=== PATIENT | male | born 1950 | race Caucasian/White ===

== ENCOUNTER 2016-12-04 13:04 | Inpatient (IN) | payer MEDICARE ==
--- NOTE | ~2016-12-04 | HP ---
History And Physical [place] [id number] [facility] [place]. 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 Murphy Abreu, radiation oncologist is Dr. Boston Mcgowan, medical oncologist Dr. David Soto, and pulmonary DrDominic Corbett. CHIEF COMPLAINT: Shortness of breath and weakness. HISTORY OF PRESENT ILLNESS: This patient's history of present illness is obtained by talking with the patient. There are multiple family members in the room. I spoke with the ER physician, Dr. Valencia. I read the paper chart in the ER and I looked at [employer]. The patient has a long history of severe diastolic dysfunction and volume issues. He also had previous hypertrophic obstructive cardiomyopathy for which he had a surgical septal myotomy in 2012. He has now had three weeks of progressive dyspnea on exertion to where he can hardly walk a few steps. He also has dyspnea at rest. He has dramatically worsening edema on top of his baseline over the last few weeks also. Yesterday, he states he was in his house, he fell in the bathroom, did not pass out, Just had weak legs. He was on the floor, finally crawled to where the phone was and got help. Came to the emergency room because of this problem and was found to be in congestive heart failure and with acute kidney injury. The ER staff gave him Solu-Medrol and Lasix and put a Cabrera in. REVIEW OF SYSTEMS: On review of systems, he states he has a dry throat, rare dry cough, some nocturia 5 to 6 times per night which is chronic. He states he has had no recent change to his medicines. He states he had a yearly flu vaccination and he is up-to-date on his pneumonia vaccine as far as he is aware. He denies fever, chest pain, abdominal pain, nausea, vomiting, diarrhea, rectal bleeding, melena, dysuria, urinary hesitancy, rash, or tick bite. ALLERGIES: NO KNOWN DRUG ALLERGIES. PAST MEDICAL HISTORY: He denies any history of diabetes, stroke, seizure, peptic ulcer, liver disease, thyroid disease. He has known oxygen-dependent chronic obstructive pulmonary disease. He has the history of aortic stenosis and he was treated with tissue aortic valve replacement on 08/28/2013. At that same time, they did a left maze for chronic atrial fibrillation, but he reportedly still has atrial fibrillation. He also had a septal myectomy for hypertrophic obstructive cardiomyopathy and supposedly has a ventricular septal defect thereafter based on the notes I read from Dr. Abreu in [facility]. He was diagnosed last month with squamous cell cancer of the lung and is about to start radiation. He has had hypertension. He has had a pacemaker put in for complete heart block. He has stage 3 chronic kidney disease. He has anemia of chronic disease. He has obstructive sleep apnea but does not wear his CPAP faithfully at all. He has had some thrombocytopenia intermittently. He has had gastroesophageal reflux. He has obesity. History And Physical [address] [address] NAME: JANICE ROSALES : 48 STATUS : ADM IN [facility]#: [id number] AGE: 66 ADM/REG DATE : 12/04/16 MR#: [id number] REPORT SERV DATE: 12/04/16 DICTATED BY: AUGIE PATTON DATE: 12/04/16 REPORT STATUS : Draft TRANSCRIBED BY: EDGARDO DATE: 12/04/16 HOME MEDICATIONS: DuoNeb inhaled 4 times a day, ProAir HFA p.r.n., Lipitor 20 mg at bedtime, Symbicort 160/4.5 two puffs twice a day, Coreg 12.5 mg b.i.d., Celexa 20 mg at bedtime, magnesium oxide 400 mg daily, Zaroxolyn 2.5 mg daily p.r.n. weight gain of more than 3 pounds in 5 days, KCl 40 mEq twice a day, spironolactone 25 mg daily, Spiriva 2 puffs daily, Demadex 100 mg every morning, Jantoven 2 mg at bedtime. SURGICAL HISTORY: Had septal myectomy, tissue aortic valve replacement, a left-sided maze procedure. He has had cholecystectomy, pacemaker, and he had a very large tubulovillous adenoma removed with a hemicolectomy in 2013. SOCIAL HISTORY: He quit smoking about 5 years ago. He had smoked 2 to3 packs per day. His alcohol intake was moderate to heavy up until about four years ago. He states he just drinks occasional beer now. He lives alone. He walks using a cane sometimes. He is a retired heavy truck driver. FAMILY HISTORY: Mother had chronic kidney disease. Dad with COPD. DIAGNOSTIC DATA: Chest x-ray as a single portable film today reveals evidence of previous sternotomy. He has a dual lead pacer in his left chest. He has significant cardiomegaly with interstitial pulmonary edema per my interpretation. EKG done today at 1413 hours reveals a ventricular paced rhythm to my assessment. Arterial blood gas done today on 32% oxygen, pH of 7.44, pCO2 of 42, PO2 81.6, bicarbonate is 28. Sodium is 140, potassium is 3.9, chloride 94, CO2 is 36, BUN is 43, creatinine 2.24, and by comparison, his creatinine was 1.74 on 11/06/2016 which is a month ago, glucose is 118, albumin 3.3. The rest of the CMP is only remarkable for an alkaline phosphatase of 141. His troponin is 0.04. His B- natriuretic peptide is 2468.4. White count is 6.6, hemoglobin 13.7, platelets are 127,000. His pro-time is 32.2, INR 3.2, and PTT is 41.8. PHYSICAL EXAMINATION: VITAL SIGNS: Temperature 98, pulse 75, respirations 18, blood pressure is 120/60, O2 saturation is currently 97% on 2 L. GENERAL: Well-developed male, who appears older than his stated age and appears chronically ill and in moderate respiratory discomfort. HEENT: Head is atraumatic. Pupils are equal, round, and reactive to light. Extraocular motions are intact. No scleral icterus noted. Ear canals and TMs noted with wax bilaterally. Hearing no inflammatory changes of the ears externally. Nose, noninflamed externally. Septum in midline. Nares patent. Mouth, moist. Good gag. He has a large tongue. No redness of the throat or gums or lips. NECK: Obese but supple. No lymph node or thyroid enlargement. The carotids have good pulses. No bruits. LUNGS: Distant breath sounds especially in the bases with prolonged expiratory phase, mildly increased respiratory effort. HEART: Regular rate and rhythm without murmur, gallop, click, or rub. ABDOMEN: Obese, bowel sounds positive. Soft, nondistended, nontender. No masses. No organomegaly. EXTREMITIES: The patient has a tight edema of his feet and calves. He has 3+ edema of his thighs. He has pitting edema of his abdominal wall. He has pitting edema up to History And Physical [address] [address] NAME: JANICE ROSALES : 49 STATUS : ADM IN [facility]#: [id number] AGE: 66 ADM/REG DATE : 12/04/16 MR#: [id number] REPORT SERV DATE: 12/04/16 DICTATED BY: AUGIE PATTON DATE: 12/04/16 REPORT STATUS : Draft TRANSCRIBED BY: EDGARDO DATE: 12/04/16 approximately his mid thoracic area in the back. He has good pulses. No clubbing. No cyanosis. No inflamed skin or joints. NEUROLOGIC: He is alert, oriented, and cooperative with grossly normal mentation and speech. His motor strength is about 2/5 in his legs bilaterally. Hand service planner is about 3/5. No Babinski. No clonus noted. Cranial nerves 2 through 12 grossly normal. ASSESSMENT: 1. Recurrent acute diastolic congestive heart failure with volume overload. 2. Acute kidney injury superimposed on stage 3 chronic kidney disease. 3. Acute on chronic hypoxic respiratory failure. 4. Severe oxygen-dependent chronic obstructive pulmonary disease. 5. Thrombocytopenia, that is a bit worsened, has been for a while, but is not completely new as he had it back in 2012. 6. See past medical history. PLAN: The patient is admitted to a telemetry unit. We will get a series of cardiac enzymes using the congestive heart failure order set. We will initiate diuresis. We will get echocardiogram, check his CPK since he laid on the floor for 3 hours yesterday. We have PT assess his ability to ambulate. Family is updated at the bedside at this time. The patient's radiation therapy for his lung will be on hold temporarily. DONIS/EDGARDO Augie Patton M.D. / [id number] CC: Lamar Fraire MD Bertrand Marquess Anz III, M.D. Daniel Smith, M.D. Allen E Atchley, M.D. John A Fortney, M.D.
--- NOTE | ~2016-12-04 | DS ---
Discharge Summary [facility] [address] [place]. [address] NAME: JANICE ROSALES : 48 STATUS : DIS IN PAT#: [id number] AGE: 66 ADM/REG DATE : 12/04/16 MR#: [id number] REPORT SERV DATE: 12/14/16 DICTATED BY: JUDE CASTRO DATE: 12/14/16 REPORT STATUS : Draft TRANSCRIBED BY: MODL DATE: 12/14/16 ADMISSION DATE: 12/04/2016 DISCHARGE DATE: 12/13/2016 DISPOSITION: Discharged to home with home hospice. DISCHARGE DIAGNOSES: 1. Acute on chronic diastolic heart failure with volume overload, somewhat resolved. 2. Metabolic encephalopathy related to worsening metabolic alkalosis. This has partially resolved. 3. Acute on chronic hypercapnic hypoxic respiratory failure. This has partially resolved. 4. Stage IV chronic kidney disease. The patient has refused any further intervention on this and definitely does not want hemodialysis. 5. Chronic obstructive pulmonary disease for which the patient is chronically oxygen dependent. This is stable. 6. Chronic atrial fibrillation for which the patient is on anticoagulation and currently continues to take Coumadin and is therapeutic. 7. Hypertrophic obstructive cardiomyopathy treated with surgical myomectomy in 2012 and secondary ventricular septal defect. 8. Previous tissue aortic valve replacement in 2012. 9. Recently diagnosed left upper lobe squamous cell cancer for which the patient does not want any treatment. 10.Infection of the glans penis with methicillin-resistant Staphylococcus aureus that has been treated with a few doses of vancomycin and cefepime and after that, the patient has refused antibiotics and the infection has cleared up now since the Cabrera catheter has been discontinued. BRIEF HOSPITAL COURSE: Please refer to Dr. Patton's interim discharge summary that was dictated on 12/09/2016. I assumed care of this patient on 12/10/2016 until I was able to send this patient to hospice on 12/12/2016. During the time that I took care of the patient, the patient's condition continued to be guarded. Even though, he was not unstable, he had multiple chronic issues affecting several major organs. At this time, since the patient had a foul-smelling discharge from the glans penis at the site where he had the Cabrera catheter and there was some maceration, we started treating him with antibiotics. Initially, I started him with IV cefepime and IV vancomycin to cover Gram negatives and also MRSA. Indeed the wound culture from this area that was sent before starting the antibiotics did grow MRSA. However, after the patient received a few days of antibiotics, he refused any more intravenous antibiotics. In addition to that, Urology who evaluated the patient suggested that the Cabrera catheter be removed, and the patient be given a voiding trial and indeed stop the antibiotics if the maceration improved on its own. This did happen. So, we were able to discontinue the Cabrera and give the patient a voiding trial, and he has been voiding fairly well so far. The maceration on the glans penis has also improved. However, the patient kept insisting that he did not want any more active care and requested repeatedly to be referred to hospice. Palliative Care was consulted, and they are also agreeable for the patient to be transferred to hospice care. Hence, Hospice team evaluated Discharge Summary [address] [place]. [address] NAME: JANICE ROSALES : 48 STATUS : DIS IN PAT#: [id number] AGE: 66 ADM/REG DATE : 12/04/16 MR#: [id number] REPORT SERV DATE: 12/14/16 DICTATED BY: JUDE CASTRO DATE: 12/14/16 REPORT STATUS : Draft TRANSCRIBED BY: EDGARDO DATE: 12/14/16 the patient on 12/12/2016 and decided to send him home with home hospice on 12/13/2016 after family was updated. I have discussed this several times with the family too and everybody is on the same mode that the patient's wishes will be respected, and we will transfer the patient home with home hospice as he wishes. Hence, he is being transferred to home with home hospice on 12/13/2016. The most recent labs that I have on this patient include wound culture that came back positive for MRSA from the glans penis. However, this has been treated as I mentioned earlier. The most recent CBC was done on 12/12/2016 and this shows WBC 7.2, hemoglobin 12.1, hematocrit 38.4, and platelet count of 113. INR is 2.5 and hence, the patient is therapeutic with the current dose of Coumadin that he is taking. Renal function profile shows sodium 138, potassium 3.6, BUN is 69, creatinine is 1.5 at this time. This is in keeping with his chronic kidney disease, stage III to IV. However, the patient does not want this to be monitored and refuses any more intervention regarding his kidneys. This is all the report that I have that are new between the interim discharge summary that has been dictated by Dr. Patton and now. I have spent about 40 minutes in coordinating discharge of this patient including transferring this patient to hospice, [id number] encounter, and summarizing this discharge. HIEN/EDGARDO Jude Castro M.D. / [id number] CC: Lamar Tamayo
--- NOTE | ~2016-12-04 | IDS ---
Interim Discharge Summary [facility] [address] [place]. [address] NAME: JANICE ROSALES : 48 STATUS : ADM IN PAT#: [id number] AGE: 66 ADM/REG DATE : 12/04/16 MR#: [id number] REPORT SERV DATE: 12/09/16 DICTATED BY: AUGIE PATTON DATE: 12/09/16 REPORT STATUS : Draft TRANSCRIBED BY: MODL DATE: 12/09/16 ADMISSION DATE: 12/04/2016 DISCHARGE DATE: CONSULTANTS: Dr. Harjinder Azul, Nephrology. PROBLEM LIST: 1. Acute on chronic diastolic failure with significant volume overload. 2. Metabolic encephalopathy related to worsened metabolic alkalosis. 3. Acute on chronic hypercapnic hypoxic respiratory failure. 4. Stage 3 chronic kidney disease. 5. Thrombocytopenia of recent onset of unclear etiology. 6. Oxygen-dependent chronic obstructive pulmonary disease. 7. Chronic atrial fibrillation with previous left Maze in 2012, still on anticoagulation. 8. Previous tissue aortic valve replacement for aortic stenosis, 2012. 9. Hypertrophic obstructive cardiomyopathy treated with surgical myomectomy in 2012 with secondary VSD. 10.Recently diagnosed left upper lobe squamous cell cancer, not treated yet. 11.Obstructive sleep apnea, not tolerating CPAP. 12.Obesity with body mass index of 40.5. 13.Gastroesophageal reflux disease. HISTORY: This gentleman has a history of hypertrophic obstructive cardiomyopathy, treated with myomectomy in 2012, complicated by VSD. He has had problems with volume overload before and presented to the emergency room at [facility] with progressive dyspnea, dyspnea at rest, dramatic worsening of his edema was all the way up to his chest. He had a fall at home, bruised his left calf with that. The patient was brought to the emergency room at [facility]. We were asked to take care of him in the hospital. On presentation, he had pitting edema all the way up to his upper chest. The edema on his thighs and calves was hard as would. The patient was placed on the cardiac telemetry floor. We initiated the heart failure order set with Bumex 1 mg IV every eight hours x3 doses. He did not respond with diuresis to that, so we increased it to 2 mg every eight hours for three doses along with albumin 25 g, he did not respond to that, so we increased it to 3 mg IV every eight hours along with Diuril and albumin and asked Nephrology to see him. Dr. Harjinder Azul of Nephrology saw the patient and placed him on a Bumex drip 2 mg/hour and some Diamox IV to try to help compensate for the contraction alkalosis. With this, the patient finally started to diurese, but he developed significant contraction alkalosis problems with worsening myoclonus and encephalopathy and muscle aches. His Bumex was stopped and Nephrology has been giving him some intravenous fluids. The patient still remains encephalopathic with prominent myoclonus. His encephalopathy is primarily manifested as slowing of speech, difficulty with concentration. These manifestations were not present on admission. There were no other sedating medicines that are new to him and it is most consistent with the acute worsening of his metabolic alkalosis. Interim Discharge Summary [address] [address] NAME: JANICE ROSALES : 48 STATUS : ADM IN [facility]#: [id number] AGE: 66 ADM/REG DATE : 12/04/16 MR#: [id number] REPORT SERV DATE: 12/09/16 DICTATED BY: AUGIE PATTON DATE: 12/09/16 REPORT STATUS : Draft TRANSCRIBED BY: MODL DATE: 12/09/16 Nephrology is now trying to assess whether they would initiate hemodialysis for volume control as his creatinine has not been significantly elevated to require it just for that purpose, and his potassium has been not elevated. The patient and daughter and granddaughter have been updated on this as well. He does have a new thrombocytopenia during this time here in the hospital. He has not been on heparin products because he is on Coumadin chronically, his peripheral smear is being reviewed by Pathology and not ready yet. As far as his lung cancer, it was just diagnosed. He was supposed to start radiation about this time with Dr. Mcgowan, but he has been hospitalized instead. He does have obstructive sleep apnea historically, but has not been able to tolerate CPAP. He does have oxygen-dependent chronic obstructive pulmonary disease. RSG/MODL Augie Patton M.D. / [id number] CC: Lamar Fraire AMANDA M
--- NOTE | ~2016-12-04 | CN ---
Consultation Report [facility] [place]. [address] NAME: JANICE ROSALES : 48 STATUS : ADM IN PAT#: [id number] AGE: 66 ADM/REG DATE : 12/04/16 MR#: [id number] REPORT SERV DATE: 12/11/16 DICTATED BY: MARGRET ROWLAND DATE: 12/11/16 REPORT STATUS : Draft TRANSCRIBED BY: MODL DATE: 12/11/16 CONSULTATION NOTE. DATE OF CONSULTATION: 12/10/2016 REASON FOR CONSULTATION: Purulence from Cabrera catheter. HISTORY OF PRESENT ILLNESS: Mr. Rosales is a pleasant 66-year-old male, who is admitted to the Hospitalist Service with recurrent congestive heart failure, acute kidney superimposed on chronic kidney disease, respiratory failure, and thrombocytopenia. He has had a Cabrera catheter placed for accurate measurements of in's and out's during his hospitalization. His creatinine has nadired and he is followed by Nephrology. He is otherwise seems to be doing quite well and has no evidence of a systemic infection. Some purulent material was seen around his Cabrera catheter in association with some foreskin edema. A Gram stain was taken of this which showed gram-positive cocci. A Urology consult has been obtained for concern for a penile infection. PAST MEDICAL HISTORY: 1. COPD. 2. Aortic stenosis. 3. AFib. 4. Hypertrophic obstructive cardiomyopathy. 5. Squamous cell cancer of the lung. 6. Hypertension. 7. Heart block. 8. Chronic kidney disease. 9. Thrombocytopenia. 10.GERD. 11.Obesity. PAST SURGICAL HISTORY: 1. Tissue aortic valve replacement. 2. Septal myectomy. 3. Left Maze for chronic atrial fibrillation. ALLERGIES: NO KNOWN DRUG ALLERGIES. MEDICATIONS: Reviewed and are listed on the chart. SOCIAL HISTORY: History of smoking. No alcohol or drugs. FAMILY HISTORY: Noncontributory. REVIEW OF SYSTEMS: Consultation Report [place] [address]. [address] NAME: JANICE ROSALES : 48 STATUS : ADM IN PAT#: [id number] AGE: 66 ADM/REG DATE : 12/04/16 MR#: [id number] REPORT SERV DATE: 12/11/16 DICTATED BY: MARGRET ROWLAND DATE: 03/15/17 REPORT STATUS : Draft TRANSCRIBED BY: MODL DATE: 12/11/16 A 12-point review of systems was performed. Pertinent positives are listed in the HPI. PHYSICAL EXAMINATION: VITAL SIGNS: Temperature is 96.8, pulse is in the 60s, blood pressure is 125/57, saturating 97% on nasal cannula. GENERAL: He is in no acute distress. Appears stated age. HEAD: Normocephalic and atraumatic. LUNGS: Breathing is nonlabored. He is not in respiratory distress. HEART: Pulse is regular in rate and rhythm. ABDOMEN: Soft, nontender, and nondistended. He has no CVA tenderness. EXTERNAL GENITALIA: He has a Cabrera catheter in place. He has some foreskin edema. There is some exudate around the catheter. The glans has no evidence of a wound or infection. NEUROLOGIC: He is alert and oriented x3, although minimally cooperative with the examination and history today. LABORATORY DATA: White count 7.6 and hemoglobin 12.7. Creatinine is 1.78. ASSESSMENT AND PLAN: Mr. Rosales has exudative material around the catheter, this is a very normal reaction to having a Cabrera catheter in place for prolonged period of time, mostly has to do with the urethra's reaction to the foreign body. Concerned for infection I recommend sending a urine culture, and treat empirically based on this. I see no signs of a localized for systemic infection and therefore a broad-spectrum antibiotic seem necessary to meet for this exact reason. We would also recommend discontinuing the Cabrera catheter as soon as possible at the primary team's discretion. I do not think this patient really has any other urologic needs at this time. Please feel free to re-consult should other issues arise. FRANCINE/EDGARDO Margret Rowland MD / [id number] CC: Lamar Tmaayo MD
--- NOTE | ~2016-12-04 | CN ---
Consultation Report [facility] [address] [place]. [address] NAME: JANICE ROSALES : 48 STATUS : ADM IN PAT#: [id number] AGE: 66 ADM/REG DATE : 12/04/16 MR#: [id number] REPORT SERV DATE: 12/06/16 DICTATED BY: ANGELA GONZALES DATE: 12/06/16 REPORT STATUS : Draft TRANSCRIBED BY: MODL DATE: 12/06/16 NEPHROLOGY CONSULT DATE OF CONSULTATION: REASON FOR CONSULT: Chronic kidney disease with diuretic-resistant anasarca. HISTORY OF PRESENT ILLNESS: Mr. Rosales is a pleasant 66-year-old white male with an extensive medical history as outlined below. Our group saw him in July 2013, when he had transient dialysis dependent acute kidney injury after septal myectomy, AVR and pacemaker for HOCM. He left the hospital with normal renal function at that time. However, baseline creatinine in the recent years has been 1.5 to 1.8. Unfortunately, due to phone failure at our office, records are not available at the time of my dictation. He states he does not follow with Nephrology on a regular basis. He was admitted on 12/04/2016 with diffuse anasarca. Renal ultrasound has shown no hydronephrosis. Echo showed EF 45% with dilated RV and RVSP 34 mmHg. He is nonoliguric, but is requiring high doses of IV Bumex. Cabrera catheter is in place and his creatinine which was 2.2 on admission, is 2.0 today. PAST MEDICAL HISTORY: 1. Chronic kidney disease, baseline creatinine 1.5 to 1.8. 2. Proteinuria 0.904. 3. HOCM, status post septal myectomy and AVR, July 2013 with subsequent dialysis dependent FLORIDALMA. 4. Pacemaker/atrial fibrillation, status post maze. On chronic anticoagulation. 5. Sleep apnea. Oxygen-dependent COPD. 6. Hypertension. 7. Hyperlipidemia. 8. History of hemicolectomy, September 2013. 9. Squamous cell lung cancer, October 2016. Untreated. 10.Hypothyroidism. MEDICATIONS: Aspirin, Lipitor, vitamin D, Colace, Pepcid, iron, finasteride, Synthroid, Coumadin, multivitamin, omega-3, potassium, Flomax, Bumex 2 mg IV q.8 hours. FAMILY HISTORY: No ESRD. SOCIAL HISTORY: He is , retired, and lives in [place], [place]. Nonsmoker. REVIEW OF SYSTEMS: Significant for PND, orthopnea, dyspnea, and edema. Takes rare ibuprofen over the counter. PHYSICAL EXAMINATION: VITAL SIGNS: Temperature 97.6, pulse 71, respirations 20, blood pressure 107/59, 92% sat on 3 L per nasal cannula. 1120 mL of intake with 1665 mL of output in the last 24 hours. Consultation Report [address] [place]. [address] NAME: JANICE ROSALES : 48 STATUS : ADM IN [facility]#: [id number] AGE: 66 ADM/REG DATE : 12/04/16 MR#: [id number] REPORT SERV DATE: 12/06/16 DICTATED BY: ANGELA GONZALES DATE: 12/06/16 REPORT STATUS : Draft TRANSCRIBED BY: EDGARDO DATE: 12/06/16 GENERAL: He is a chronically ill-appearing white male, who is awake, alert, and oriented, up in the chair, in no distress. HEENT: Sclerae without icterus. Conjunctivae not injected. Oropharynx is clear. NECK: He has JVD at 10-12 cm. LUNGS: Diffuse bilateral rhonchi without active dyspnea or tachypnea, on O2 per nasal cannula at rest. HEART: He has a paced rhythm. 2/[address] No rub. ABDOMEN: Obese, soft, nontender, distended with ascites. Bowel sounds present throughout. He has 3 to 4+ pitting anasarca. : Urine output is clear in the Cabrera catheter. NEURO: Grossly nonfocal. MUSCULOSKELETAL: Exam shows no active tenosynovitis or gout. NEURO: Exam is grossly nonfocal. Mood and affect are flat. LABORATORY DATA: Sodium 140, potassium 3.5, bicarb 36, BUN 54, creatinine 2, GFR 34 mL/minute, calcium 9.2, phosphorus 4.5, albumin 3.2. Liver function tests are normal. BNP 2468 on admission. White count 5.1000, hemoglobin 12.6, platelets 111,000. INR 2.1. ABG on admission, pH 7.44, PaCO2 of 42, and PaO2 of 82. ASSESSMENT/PLAN: Mr. Rosales has chronic kidney disease, baseline creatinine 1.5 to 1.8 now. Admitted with acute kidney injury, anasarca, EF 45%, pulmonary hypertension, chronic obstructive pulmonary disease, sleep apnea, pacer, recent diagnosis of lung cancer, and hyperlipidemia. Likely has cardiorenal syndrome. The significance of the VSD unclear at this time. This was noted on echocardiogram this admission. He has had diuretic resistant edema. We will try a Bumex drip and Diamox. Consider addition of Aldactone if remains hypokalemic? If he does not respond to diuretics appropriately, we would consider initiation of dialysis and/or SCUF. No plans for ROBIN inhibitor or ARB at this time with his chronic kidney disease. Continue supportive care. Watch labs. Avoid nephrotoxic medications, and follow response to the above. We will follow closely with you. Appreciate consult. SHELLY/MODL Angela Gonzales M.D. / [id number] CC: Lamar Fraire Amanda M
[~2016-12-04 13:04] MED LIST: ADVIL PO; ASA5GR PO; ASAB PO; CARDCD360 PO; CELEXA20 PO; COREG12 PO; COREG3 PO; COREG6 PO; COUMADIN3 MG PO; COUMADIN4 MG PO; COUMADIN6 MG PO; DEMA100 PO; DEMA20 PO; EZFE 200200 MG PO; FOLIC PO; HALF81 PO; HCTZ25B PO; HYDROCHLOROT25 MG PO; JANTOVEN2 MG PO; JANTOVEN3 MG PO; KCL20UDL PO; KDUR10 PO; KDUR20 PO; KLOR-CON M2020 MEQ PO; L40 PO; LEVAQUIN750 MG PO; LIPITOR20 PO; LORTAB 5 PO; MAGOX4 PO; MAXIMUM D3 PO; METANX PO; MUCINEX PO; NORCO1 TA1 PO; OMNICEF300 PO; P10 PO; P20 PO; P5 PO; POTASSIUM CHLORIDE; PRILO PO; PRIN2.5 PO; PRIN5 PO; PROAIR HFA INH; SENTAB PO; SPIRIVA INH; SPIRO25 PO; SYMBICORT 160/41 INH INH; TYLENOL PM PO; VIBRATAB100 MG PO; VICODINTAB PO; VITAMIN D31000 UNIT PO; Z5 PO; ZAROX2.5B PO
[2016-12-04] MEDS ORDERED: KLOR-CON M2020 MEQ PO (14:12)
[2016-12-04 14:13] LABS: BASOPHILS 0.6 %; BASOPHILS ABSOLUTE 0.04 10/3/uL (0.0-0.16); EOSINOPHILS 0.5 %; EOSINOPHILS ABSOLUTE 0.03 10/3/uL (0.0-0.53); ER CBC TAT 0 Hrs 08 Mins; HEMATOCRIT 42.2 % (40.0-51.0); HEMOGLOBIN 13.7 g/dL (13.6-17.8); IMMATURE GRANULOCYTES 0.2 %; IMMATURE GRANULOCYTES ABSOLUTE 0.01 10/3/uL (0.0-0.11); LYMPHOCYTES 5.6 %; LYMPHOCYTES ABSOLUTE 0.37 10/3/uL (0.67-4.30); MANUAL DIFF NO %; MEAN CORPUS HGB CONC 32.5 g/dL (32.0-36.0); MEAN CORPUSCULAR HEMOGLOB 29.1 pg (26.0-34.0); MEAN CORPUSCULAR VOLUME 89.8 fL (80-100); MONOCYTES 3.2 %; MONOCYTES ABSOLUTE 0.21 10/3/uL (0.21-1.20); NEUTROPHILS 89.9 %; PLATELET COUNT 127 10/3/uL (150-400); RBC DISTRIBUTION WIDTH 24.1 % (12.0-16.0); WHITE BLOOD CELLS 6.6 10/3/uL (4.5-10.5)
[2016-12-04] MEDS ORDERED: CELEXA20 PO (14:13)
[2016-12-04] MEDS ORDERED: JANTOVEN2 MG PO (14:13)
[2016-12-04] MEDS ORDERED: COREG12 PO (14:13)
[2016-12-04] MEDS ORDERED: SPIRO25 PO (14:13)
[2016-12-04] MEDS ORDERED: DEMA100 PO (14:14)
[2016-12-04] MEDS ORDERED: LIPITOR20 PO (14:14)
[2016-12-04] MEDS ORDERED: MAGOX4 PO (14:14)
[2016-12-04] MEDS ORDERED: SPIRIVA RESPIMAT INH (14:15)
[2016-12-04] MEDS ORDERED: SYMBICORT 160/41 INH INH (14:15)
[2016-12-04] MEDS ORDERED: PROAIR HFA INH (14:15)
[2016-12-04 14:16] LABS: INTERNATIONAL NORMAL RATI 3.2 UNITS (-); PARTIAL THROMBO TIME 41.8 SEC (22.5-37.2)
[2016-12-04 14:17] LABS: PROTIME (NOT ORD) 32.2 SEC (12.0-14.5)
[2016-12-04] MEDS ORDERED: ZAROX2.5B PO (14:17)
[2016-12-04 14:26] LABS: ALBUMIN 3.3 G/DL (3.5-5.0); ALKALINE PHOSPHATASE 141 U/L (45-117); BUN (BLOOD UREA NITROGEN) 43 MG/DL (6-23); CALCIUM, SERUM 9.4 MG/DL (8.5-10.4); CHEST PAIN PROFILE TAT 0 Hrs 21 Mins; CHLORIDE, SERUM 94 MMOL/L (96-112); CO2 (CARBON DIOXIDE) 36 MMOL/L (24-34); CREATININE 2.24 MG/DL (0.70-1.30); DIRECT BILIRUBIN 0.7 MG/DL (0.0-0.4); GFR AFRICAN AMERICAN 34 ML/MIN (>=60); GFR NON AFRICAN AMERICAN 29 ML/MIN (>=60); GLUCOSE, SERUM 118 MG/DL (60-99); INDIRECT BILIRUBIN(NOT ORDER) 0.6 MG/DL (0.1-0.9); POTASSIUM, SERUM 3.9 MMOL/L (3.5-5.3); SGOT(AST) 17 U/L (5-40); SGPT(ALT) 21 U/L (5-65); SODIUM, SERUM 140 MMOL/L (135-148); TOTAL BILIRUBIN 1.3 MG/DL (0-1.2); TOTAL PROTEIN 7.3 G/DL (6.0-8.5); TROPONIN I 0.04 NG/ML (<0.05)
[2016-12-04] MEDS ORDERED: DUONEB INH (14:26)
[2016-12-04 14:55] LABS: PLATELET ESTIMATE SLT DEC (ADEQUATE)
[2016-12-04 14:56] LABS: MACROCYTES 1+ (5-10/OIF) (0-5/OIF); MICROCYTES 1+ (5-10/OIF) (0-5/OIF)
[2016-12-04 16:05] LABS: BE (BASE EXCESS) 3.5 MEQ/L (0 +/- 2.5); CARBOXYHEMOGLOBIN 2.2 % (0-3); DEVICE NC; HEMOBLOGIN CONTENT 14.4 G/DL (14-18); INSTRUMENT SERIAL # 8087; METHEMOGLOBIN 0.3 % (0-3); PCO2 (CO2 TENSION) 42 MMHG (35-45); PO2 (O2 TENSION) 82 MMHG (79-93); SAMPLE Arterial; pH 7.44 (7.37-7.43)
[2016-12-04 20:20] LABS: CPK 43 U/L (0-200); TROPONIN I 0.04 NG/ML (<0.05)
[2016-12-04 20:22] LABS: CK-MB 1.1 NG/ML
[2016-12-04 21:28] LABS: PROCALCITONIN 0.12 ng/mL (<0.5)
[2016-12-05 02:23] LABS: ASCORBIC ACID (UR NOT ORDER) NEG (NEG); BILIRUBIN, URINE NEGATIVE (NEG); KETONE, URINE NEGATIVE (NEG); LEUKOCYTE ESTERASE(NOT OR NEG (NEG); WBC (NOT ORDERED) (RFLEX) 3 (0-5)
[2016-12-05 02:25] LABS: CREATININE, URINE 14.7 MG/DL
[2016-12-05 06:20] LABS: INTERNATIONAL NORMAL RATI 3.4 UNITS (-); PROTIME (NOT ORD) 34.2 SEC (12.0-14.5)
[2016-12-05 06:28] LABS: BASOPHILS 0 %; BUN (BLOOD UREA NITROGEN) 45 MG/DL (6-23); CALCIUM, SERUM 9.1 MG/DL (8.5-10.4); CHLORIDE, SERUM 94 MMOL/L (96-112); CO2 (CARBON DIOXIDE) 35 MMOL/L (24-34); CREATININE 2.03 MG/DL (0.70-1.30); EOSINOPHILS 0 %; GFR AFRICAN AMERICAN 38 ML/MIN (>=60); GFR NON AFRICAN AMERICAN 33 ML/MIN (>=60); HEMATOCRIT 38.1 % (40.0-51.0); HEMOGLOBIN 12.6 g/dL (13.6-17.8); IMMATURE GRANULOCYTES 0.2 %; IMMATURE GRANULOCYTES ABSOLUTE 0.01 10/3/uL (0.0-0.11); LYMPHOCYTES 4.5 %; LYMPHOCYTES ABSOLUTE 0.23 10/3/uL (0.67-4.30); MEAN CORPUS HGB CONC 33.1 g/dL (32.0-36.0); MEAN CORPUSCULAR HEMOGLOB 29.6 pg (26.0-34.0); MEAN CORPUSCULAR VOLUME 89.4 fL (80-100); MONOCYTES 2.8 %; MONOCYTES ABSOLUTE 0.14 10/3/uL (0.21-1.20); NEUTROPHILS 92.5 %; NEUTROPHILS ABSOLUTE 4.68 10/3/uL (2.02-8.40); PLATELET COUNT 111 10/3/uL (150-400); POTASSIUM, SERUM 3.4 MMOL/L (3.5-5.3); RBC DISTRIBUTION WIDTH 23.9 % (12.0-16.0); RED CELL COUNT 4.26 10/6/uL (4.7-6.1); SODIUM, SERUM 141 MMOL/L (135-148); WHITE BLOOD CELLS 5.1 10/3/uL (4.5-10.5)
[2016-12-05 06:29] LABS: GLUCOSE, SERUM 150 MG/DL (60-99)
[2016-12-05 06:30] LABS: MANUAL DIFF NO %
[2016-12-05 07:03] LABS: MACROCYTES 1+ (5-10/OIF) (0-5/OIF); MICROCYTES 1+ (5-10/OIF) (0-5/OIF); PLATELET ESTIMATE SLT DEC (ADEQUATE)
[2016-12-06 06:12] LABS: INTERNATIONAL NORMAL RATI 2.9 UNITS (-); PROTIME (NOT ORD) 29.8 SEC (12.0-14.5)
[2016-12-06 06:16] LABS: ALBUMIN 3.2 G/DL (3.5-5.0); BUN (BLOOD UREA NITROGEN) 54 MG/DL (6-23); CALCIUM, SERUM 9.2 MG/DL (8.5-10.4); CHLORIDE, SERUM 92 MMOL/L (96-112); CO2 (CARBON DIOXIDE) 36 MMOL/L (24-34); CREATININE 1.99 MG/DL (0.70-1.30); GFR AFRICAN AMERICAN 39 ML/MIN (>=60); GFR NON AFRICAN AMERICAN 34 ML/MIN (>=60); GLUCOSE, SERUM 114 MG/DL (60-99); PHOSPHORUS, SERUM 4.5 MG/DL (2.5-4.5); POTASSIUM, SERUM 3.5 MMOL/L (3.5-5.3); SODIUM, SERUM 140 MMOL/L (135-148)
[2016-12-07 07:14] LABS: INTERNATIONAL NORMAL RATI 2.6 UNITS (-); PROTIME (NOT ORD) 27.2 SEC (12.0-14.5)
[2016-12-07 07:21] LABS: ALBUMIN 3.6 G/DL (3.5-5.0); BUN (BLOOD UREA NITROGEN) 60 MG/DL (6-23); CALCIUM, SERUM 9.1 MG/DL (8.5-10.4); CHLORIDE, SERUM 90 MMOL/L (96-112); CO2 (CARBON DIOXIDE) 38 MMOL/L (24-34); CREATININE 2.25 MG/DL (0.70-1.30); GFR AFRICAN AMERICAN 34 ML/MIN (>=60); GFR NON AFRICAN AMERICAN 29 ML/MIN (>=60); GLUCOSE, SERUM 93 MG/DL (60-99); POTASSIUM, SERUM 3.1 MMOL/L (3.5-5.3); SODIUM, SERUM 140 MMOL/L (135-148)
[2016-12-08 06:14] LABS: INTERNATIONAL NORMAL RATI 2.4 UNITS (-); PROTIME (NOT ORD) 25.6 SEC (12.0-14.5)
[2016-12-08 06:26] LABS: HEMATOCRIT 41.3 % (40.0-51.0); HEMOGLOBIN 13.3 g/dL (13.6-17.8); MEAN CORPUS HGB CONC 32.2 g/dL (32.0-36.0); MEAN CORPUSCULAR HEMOGLOB 29.2 pg (26.0-34.0); MEAN CORPUSCULAR VOLUME 90.8 fL (80-100); PLATELET COUNT 88 10/3/uL (150-400); RBC DISTRIBUTION WIDTH 23.5 % (12.0-16.0); RED CELL COUNT 4.55 10/6/uL (4.7-6.1)
[2016-12-08 06:27] LABS: ALBUMIN 3.6 G/DL (3.5-5.0); CALCIUM, SERUM 9.5 MG/DL (8.5-10.4); CHLORIDE, SERUM 90 MMOL/L (96-112); CREATININE 2.02 MG/DL (0.70-1.30); GFR AFRICAN AMERICAN 38 ML/MIN (>=60); GFR NON AFRICAN AMERICAN 33 ML/MIN (>=60); GLUCOSE, SERUM 103 MG/DL (60-99); PHOSPHORUS, SERUM 3.4 MG/DL (2.5-4.5); SODIUM, SERUM 140 MMOL/L (135-148)
[2016-12-08 06:32] LABS: BUN (BLOOD UREA NITROGEN) 68 MG/DL (6-23); CO2 (CARBON DIOXIDE) 43 MMOL/L (24-34)
[2016-12-08 06:40] LABS: MANUAL DIFF YES %
[2016-12-08 07:18] LABS: BAND NEUTROPHILS 1 %; LYMPHOCYTES 4 %; LYMPHOCYTES ABSOLUTE (CALC) 0.24 10/3/uL (0.67-4.30); MONOCYTES 9 %; MONOCYTES ABSOLUTE (CALC) 0.54 10/3/uL (0.21-1.20); NEUTROPHILS ABSOLUTE (CALC) 5.22 10/3/uL (2.02-8.40); SEGMENTED NEUTROPHIL (0) 86 %; TOTAL NUCLEATED CELLS 100
[2016-12-08 07:19] LABS: MACROCYTES 1+ (5-10/OIF) (0-5/OIF); MICROCYTES 1+ (5-10/OIF) (0-5/OIF); PLATELET ESTIMATE DEC (ADEQUATE); POLYCHROMASIA 1+ (2-5/OIF) (0-1/OIF)
[2016-12-08 07:20] LABS: GIANT PLATELET RARE
[2016-12-08 11:57] LABS: CARBOXYHEMOGLOBIN 1.7 % (0-3); DEVICE NC; HCO3 (ACTUAL BICARBONATE) 43.4 MEQ/L (23-27); HEMOBLOGIN CONTENT 13.8 G/DL (14-18); INSTRUMENT SERIAL # 8083; METHEMOGLOBIN 0.2 % (0-3); O2 CONTENT 16.7 VOL% (18-24); OPERATOR ID 32214; PCO2 (CO2 TENSION) 65 MMHG (35-45); PO2 (O2 TENSION) 56 MMHG (79-93); SAMPLE Arterial; pH 7.45 (7.37-7.43)
[2016-12-08 16:01] LABS: BUN (BLOOD UREA NITROGEN) 67 MG/DL (6-23); CALCIUM, SERUM 9.3 MG/DL (8.5-10.4); CHLORIDE, SERUM 91 MMOL/L (96-112); CREATININE 1.92 MG/DL (0.70-1.30); GFR AFRICAN AMERICAN 41 ML/MIN (>=60); GFR NON AFRICAN AMERICAN 35 ML/MIN (>=60); GLUCOSE, SERUM 101 MG/DL (60-99); POTASSIUM, SERUM 3.4 MMOL/L (3.5-5.3); SODIUM, SERUM 140 MMOL/L (135-148)
[2016-12-08 16:04] LABS: CO2 (CARBON DIOXIDE) > 45 MMOL/L (24-34)
[2016-12-09 04:29] LABS: ALLENS TEST Pos; BE (BASE EXCESS) 14.8 MEQ/L (0 +/- 2.5); CARBOXYHEMOGLOBIN 1.6 % (0-3); DEVICE NC; HCO3 (ACTUAL BICARBONATE) 42.1 MEQ/L (23-27); HEMOBLOGIN CONTENT 13.4 G/DL (14-18); INSTRUMENT SERIAL # 8083; METHEMOGLOBIN 0.2 % (0-3); O2 CONTENT 17.8 VOL% (18-24); OPERATOR ID 30013; PCO2 (CO2 TENSION) 64 MMHG (35-45); PO2 (O2 TENSION) 85 MMHG (79-93); SAMPLE Arterial; pH 7.43 (7.37-7.43)
[2016-12-09 06:11] LABS: INTERNATIONAL NORMAL RATI 2.2 UNITS (-); PROTIME (NOT ORD) 24.2 SEC (12.0-14.5)
[2016-12-09 06:14] LABS: ALBUMIN 3.3 G/DL (3.5-5.0); BUN (BLOOD UREA NITROGEN) 64 MG/DL (6-23); CALCIUM, SERUM 9.2 MG/DL (8.5-10.4); CHLORIDE, SERUM 89 MMOL/L (96-112); CREATININE 1.72 MG/DL (0.70-1.30); GFR AFRICAN AMERICAN 47 ML/MIN (>=60); GFR NON AFRICAN AMERICAN 40 ML/MIN (>=60); GLUCOSE, SERUM 99 MG/DL (60-99); PHOSPHORUS, SERUM 3.2 MG/DL (2.5-4.5); POTASSIUM, SERUM 3.8 MMOL/L (3.5-5.3); SODIUM, SERUM 140 MMOL/L (135-148)
[2016-12-09 06:15] LABS: CO2 (CARBON DIOXIDE) 40 MMOL/L (24-34)
[2016-12-09 06:27] LABS: HEMOGLOBIN 12.6 g/dL (13.6-17.8); MEAN CORPUS HGB CONC 31.5 g/dL (32.0-36.0); MEAN CORPUSCULAR HEMOGLOB 28.5 pg (26.0-34.0); MEAN CORPUSCULAR VOLUME 90.5 fL (80-100); PLATELET COUNT 111 10/3/uL (150-400); RBC DISTRIBUTION WIDTH 23.9 % (12.0-16.0); RED CELL COUNT 4.42 10/6/uL (4.7-6.1); WHITE BLOOD CELLS 6.7 10/3/uL (4.5-10.5)
[2016-12-09 06:35] LABS: MANUAL DIFF YES %
[2016-12-09 06:54] LABS: BAND NEUTROPHILS 2 %; LYMPHOCYTES 3 %; MONOCYTES 5 %; MONOCYTES ABSOLUTE (CALC) 0.34 10/3/uL (0.21-1.20); NEUTROPHILS ABSOLUTE (CALC) 6.16 10/3/uL (2.02-8.40); PLATELET ESTIMATE DEC (ADEQUATE); SEGMENTED NEUTROPHIL (0) 90 %; TOTAL NUCLEATED CELLS 100
[2016-12-09 08:44] LABS: SMEAR FOR ABNORMAL CELLS SEE PATHOLOGY REPORT
[2016-12-10 06:01] LABS: HEMATOCRIT 39.1 % (40.0-51.0); HEMOGLOBIN 12.9 g/dL (13.6-17.8); MANUAL DIFF YES %; MEAN CORPUSCULAR HEMOGLOB 29.9 pg (26.0-34.0); MEAN CORPUSCULAR VOLUME 90.7 fL (80-100); PLATELET COUNT 130 10/3/uL (150-400); RBC DISTRIBUTION WIDTH 23.7 % (12.0-16.0); RED CELL COUNT 4.31 10/6/uL (4.7-6.1); WHITE BLOOD CELLS 7.6 10/3/uL (4.5-10.5)
[2016-12-10 06:08] LABS: INTERNATIONAL NORMAL RATI 2.5 UNITS (-); PROTIME (NOT ORD) 27.1 SEC (12.0-14.5)
[2016-12-10 06:17] LABS: ALBUMIN 3.2 G/DL (3.5-5.0); BUN (BLOOD UREA NITROGEN) 64 MG/DL (6-23); CALCIUM, SERUM 9.5 MG/DL (8.5-10.4); CHLORIDE, SERUM 93 MMOL/L (96-112); CO2 (CARBON DIOXIDE) 38 MMOL/L (24-34); GFR AFRICAN AMERICAN 47 ML/MIN (>=60); GFR NON AFRICAN AMERICAN 41 ML/MIN (>=60); GLUCOSE, SERUM 100 MG/DL (60-99); PHOSPHORUS, SERUM 3.5 MG/DL (2.5-4.5); POTASSIUM, SERUM 3.6 MMOL/L (3.5-5.3); SODIUM, SERUM 141 MMOL/L (135-148)
[2016-12-10 06:45] LABS: BAND NEUTROPHILS 1 %; EOSINOPHILS 1 %; EOSINOPHILS ABSOLUTE (CALC) 0.08 10/3/uL (0.0-0.53); LYMPHOCYTES 4 %; MONOCYTES 11 %; MONOCYTES ABSOLUTE (CALC) 0.84 10/3/uL (0.21-1.20); NEUTROPHILS ABSOLUTE (CALC) 6.38 10/3/uL (2.02-8.40); PLATELET ESTIMATE SLT DEC (ADEQUATE); SEGMENTED NEUTROPHIL (0) 83 %; TOTAL NUCLEATED CELLS 100
[2016-12-11 05:17] LABS: BASOPHILS 0.1 %; BASOPHILS ABSOLUTE 0.01 10/3/uL (0.0-0.16); EOSINOPHILS 1.3 %; HEMATOCRIT 39.2 % (40.0-51.0); HEMOGLOBIN 12.7 g/dL (13.6-17.8); IMMATURE GRANULOCYTES 0.1 %; IMMATURE GRANULOCYTES ABSOLUTE 0.01 10/3/uL (0.0-0.11); LYMPHOCYTES 10.8 %; LYMPHOCYTES ABSOLUTE 0.82 10/3/uL (0.67-4.30); MEAN CORPUS HGB CONC 32.4 g/dL (32.0-36.0); MEAN CORPUSCULAR HEMOGLOB 29.3 pg (26.0-34.0); MEAN CORPUSCULAR VOLUME 90.3 fL (80-100); MONOCYTES 8.8 %; MONOCYTES ABSOLUTE 0.67 10/3/uL (0.21-1.20); NEUTROPHILS 78.9 %; NEUTROPHILS ABSOLUTE 5.99 10/3/uL (2.02-8.40); PLATELET COUNT 119 10/3/uL (150-400); RBC DISTRIBUTION WIDTH 23.7 % (12.0-16.0); RED CELL COUNT 4.34 10/6/uL (4.7-6.1); WHITE BLOOD CELLS 7.6 10/3/uL (4.5-10.5)
[2016-12-11 05:20] LABS: MANUAL DIFF NO %
[2016-12-11 05:23] LABS: INTERNATIONAL NORMAL RATI 2.5 UNITS (-); PROTIME (NOT ORD) 26.7 SEC (12.0-14.5)
[2016-12-11 05:25] LABS: ALBUMIN 3.1 G/DL (3.5-5.0); BUN (BLOOD UREA NITROGEN) 66 MG/DL (6-23); CALCIUM, SERUM 9.6 MG/DL (8.5-10.4); CHLORIDE, SERUM 93 MMOL/L (96-112); CO2 (CARBON DIOXIDE) 37 MMOL/L (24-34); CREATININE 1.78 MG/DL (0.70-1.30); GFR AFRICAN AMERICAN 45 ML/MIN (>=60); GFR NON AFRICAN AMERICAN 39 ML/MIN (>=60); GLUCOSE, SERUM 99 MG/DL (60-99); PHOSPHORUS, SERUM 3.7 MG/DL (2.5-4.5); POTASSIUM, SERUM 3.9 MMOL/L (3.5-5.3); SODIUM, SERUM 138 MMOL/L (135-148)
[2016-12-11 06:04] LABS: ANISOCYTOSIS 1+ (5-10/OIF) (0-5/OIF); BAND NEUTROPHILS 2 %; EOSINOPHILS 3 %; EOSINOPHILS ABSOLUTE (CALC) 0.23 10/3/uL (0.0-0.53); LYMPHOCYTES 6 %; LYMPHOCYTES ABSOLUTE (CALC) 0.46 10/3/uL (0.67-4.30); MONOCYTES 9 %; MONOCYTES ABSOLUTE (CALC) 0.68 10/3/uL (0.21-1.20); NEUTROPHILS ABSOLUTE (CALC) 6.23 10/3/uL (2.02-8.40); PLATELET ESTIMATE SLT DEC (ADEQUATE); SEGMENTED NEUTROPHIL (0) 80 %; TOTAL NUCLEATED CELLS 100
[2016-12-12 05:17] LABS: BASOPHILS 0.1 %; BASOPHILS ABSOLUTE 0.01 10/3/uL (0.0-0.16); EOSINOPHILS 1.5 %; EOSINOPHILS ABSOLUTE 0.11 10/3/uL (0.0-0.53); HEMATOCRIT 38.4 % (40.0-51.0); HEMOGLOBIN 12.1 g/dL (13.6-17.8); IMMATURE GRANULOCYTES 0.3 %; IMMATURE GRANULOCYTES ABSOLUTE 0.02 10/3/uL (0.0-0.11); LYMPHOCYTES 12.7 %; LYMPHOCYTES ABSOLUTE 0.92 10/3/uL (0.67-4.30); MEAN CORPUS HGB CONC 31.5 g/dL (32.0-36.0); MEAN CORPUSCULAR HEMOGLOB 28.2 pg (26.0-34.0); MEAN CORPUSCULAR VOLUME 89.5 fL (80-100); MONOCYTES 7.1 %; MONOCYTES ABSOLUTE 0.51 10/3/uL (0.21-1.20); NEUTROPHILS 78.3 %; NEUTROPHILS ABSOLUTE 5.66 10/3/uL (2.02-8.40); PLATELET COUNT 113 10/3/uL (150-400); RBC DISTRIBUTION WIDTH 23.4 % (12.0-16.0); RED CELL COUNT 4.29 10/6/uL (4.7-6.1); WHITE BLOOD CELLS 7.2 10/3/uL (4.5-10.5)
[2016-12-12 05:21] LABS: MANUAL DIFF NO %
[2016-12-12 05:22] LABS: INTERNATIONAL NORMAL RATI 2.5 UNITS (-); PROTIME (NOT ORD) 27.1 SEC (12.0-14.5)
[2016-12-12 05:30] LABS: ALBUMIN 3.2 G/DL (3.5-5.0); BUN (BLOOD UREA NITROGEN) 69 MG/DL (6-23); CALCIUM, SERUM 9.3 MG/DL (8.5-10.4); CHLORIDE, SERUM 94 MMOL/L (96-112); CO2 (CARBON DIOXIDE) 34 MMOL/L (24-34); CREATININE 1.57 MG/DL (0.70-1.30); GFR AFRICAN AMERICAN 52 ML/MIN (>=60); GFR NON AFRICAN AMERICAN 45 ML/MIN (>=60); GLUCOSE, SERUM 100 MG/DL (60-99); PHOSPHORUS, SERUM 3.6 MG/DL (2.5-4.5); POTASSIUM, SERUM 3.6 MMOL/L (3.5-5.3); SODIUM, SERUM 138 MMOL/L (135-148)
[2016-12-12 06:14] LABS: PLATELET ESTIMATE DEC (ADEQUATE)
[2016-12-13 06:42] LABS: INTERNATIONAL NORMAL RATI 1.9 UNITS (-)
[2016-12-13 06:43] LABS: PROTIME (NOT ORD) 21.7 SEC (12.0-14.5)
== END 2016-12-13 21:18 | disposition hospice, home (50) | DRG 291 ==
LOC: ER 13:04 → 1SO 17:51
PROVIDERS: Emergency Medicine; Hospitalist; Registered Nurse
DX: I13.0 Hypertensive heart and chronic kidney disease with heart failure and stage 1 through stage 4 chronic kidney disease, or unspecified chronic kidney disease (principal); J96.21 Acute and chronic respiratory failure with hypoxia; N17.9 Acute kidney failure, unspecified; I44.2 Atrioventricular block, complete; N18.4 Chronic kidney disease, stage 4 (severe); E87.3 Alkalosis; J96.22 Acute and chronic respiratory failure with hypercapnia; I50.33 Acute on chronic diastolic (congestive) heart failure; C34.12 Malignant neoplasm of upper lobe, left bronchus or lung; Z68.41 Body mass index [BMI] 40.0-44.9, adult; D69.6 Thrombocytopenia, unspecified; I27.2 Other secondary pulmonary hypertension; T83.518A Infection and inflammatory reaction due to other urinary catheter, initial encounter; I42.8 Other cardiomyopathies; J44.9 Chronic obstructive pulmonary disease, unspecified; Z66 Do not resuscitate; Z51.5 Encounter for palliative care; B95.62 Methicillin resistant Staphylococcus aureus infection as the cause of diseases classified elsewhere; I48.0 Paroxysmal atrial fibrillation; K21.9 Gastro-esophageal reflux disease without esophagitis; Z99.81 Dependence on supplemental oxygen; I35.0 Nonrheumatic aortic (valve) stenosis; Y83.8 Other surgical procedures as the cause of abnormal reaction of the patient, or of later complication, without mention of misadventure at the time of the procedure; E87.70 Fluid overload, unspecified; G47.33 Obstructive sleep apnea (adult) (pediatric); D63.1 Anemia in chronic kidney disease; D63.0 Anemia in neoplastic disease; E66.9 Obesity, unspecified; E78.5 Hyperlipidemia, unspecified; E03.9 Hypothyroidism, unspecified; Z91.19 Patient's noncompliance with other medical treatment and regimen; Z79.82 Long term (current) use of aspirin; Z79.01 Long term (current) use of anticoagulants; Z79.899 Other long term (current) drug therapy; Z87.891 Personal history of nicotine dependence; Z95.2 Presence of prosthetic heart valve; Z95.0 Presence of cardiac pacemaker; Z90.49 Acquired absence of other specified parts of digestive tract
CPT/HCPCS: 36600; 71010; 76775; 80048; 80069; 80076; 81001; 82550; 82553; 82570; 82805; 83690; 83735; 83880; 84145; 84156; 84484; 85025; 85610; 85730; 87040; 87070; 87077; 87186; 87205; 93005; 94640; 96374; 97110-GP; 97116-GP; 97162-GP; 97164-GP; 97166-GO; 97530-GP; 99291; A9270-GY; C8929; G8978-CK-GP; G8978-CL-GP; G8979-CK-GP; G8980-CK-GP; G8987-CL-GO; G8988-CK-GO; J0692; J1120; J1205; J1940; J2930; J3370; P9047; Q9957